=== PATIENT | male | born 1945 | race Caucasian/White ===

== ENCOUNTER 2023-07-21 11:15 | Outpatient (OUT) | payer MEDICARE, SELFPAY ==
--- NOTE | 2023-07-21 11:26 | FL_ITS ---
[address] [address] Patient Name: MO ORONA MRN: [id number] date: 1945 Sex: M Assigned Patient Location: ND Current Patient Location: ND Accession/Order Number: [id number] Exam Date: 07/21/2023 11:50 Report Date: 07/21/2023 12:22 At the request of: NON-STAFF PHYSICIAN Procedure: FL modified barium swallow EXAMINATION: ND modified barium swallow HISTORY: Oropharyngeal Dysphagia R13.12 COMPARISON: No relevant comparison available. TECHNIQUE: A swallowing evaluation was performed with fluoroscopy in the usual manner. Standard level fluoroscopic mode of operation utilized. 1.4 minutes of fluoroscopy. 3 images. Speech pathology was present. The procedure was recorded FINDINGS: ORAL PHASE: Normal deglutition. PHARYNGEAL PHASE: Normal swallowing. ASPIRATION: None. STRUCTURE: Normal. No visible obstruction, stricture, or dilatation. OTHER: Mild unfolding of food stuffs in the vallecula FL/ND modified barium swallow IMPRESSION: Normal examination. Electronically authenticated by: MARKIE MARSHALL Date: 07/21/2023 12:22
== END 2023-07-21 11:16 | disposition home or self-care (01) ==
PROVIDERS: PCP Family Medicine
DX: R13.12 Dysphagia, oropharyngeal phase (principal)
CPT/HCPCS: 74230; 92611